=== PATIENT | male | born 1965 | race Caucasian/White ===

== ENCOUNTER 2017-02-13 00:25 | Emergency (ER) | payer MEDICAID ==
[2017-02-13 00:40] VITALS: BP 128/80
[2017-02-13] MEDS ORDERED: Hydrochlorothiazide 25 MG Tab PO ONE (01:10)
--- NOTE | 2017-02-13 02:12 | EDM.PDOC ---
ED HISTORY OF PRESENT ILLNESS - General Chief Complaint: Respiratory Problem Stated Complaint: POSSIBLE ALLERGIC REACTION Time Seen by Provider: 02/13/17 00:34 Source: Reports: Patient, Family () History Limitations: Reports: No limitations - History of Present Illness INITIAL COMMENTS - FREE TEXT/NARRATIVE: shortness of breath, when laying down: this is a 51 year old male present to ER with concerns of shortness of breath when laying. He reports had a change in his medication in October, noticed increased swelling in legs since the change. denies any chest pain, fever, chills, cough, nausea, vomiting, rash, head pain or other symptoms. worries he may have allergies. Timing/Duration: Reports: Gradual onset (since October 2016, stopped HCTZ) Location, General: Reports: generalized Improves with: Reports: Rest Worsens with: Reports: Movement Associated Symptoms: Reports: denies other symptoms - Related Data Allergies/ADRs: Allergies Allergy/AdvReac Type Severity Reaction Status Date / Time codeine Allergy Chest Verified 08/01/14 23:07 Tightness dextromethorphan Allergy Cough Verified 08/01/14 23:07 Home Meds: Home Meds Aspirin [Cain Chewable] 81 mg PO DAILY 08/01/14 [History] Fish Oil/DHA/EPA [Fish Oil 1,200 MG] 1 each PO DAILY 08/01/14 [History] Hydrochlorothiazide 25 mg PO DAILY 08/01/14 [History] Potassium Chloride 20 meq PO BEDTIME 08/01/14 [History] Potassium Chloride [Klor-Con] 40 meq PO DAILY 08/01/14 [History] Simvastatin [Zocor] 40 mg PO DAILY 08/01/14 [History] Furosemide [Furosemide] 20 mg PO DAILY 02/13/17 [History] Garlic 1 tab PO DAILY 02/13/17 [History] Metoprolol Succinate 50 mg PO DAILY 02/13/17 [History] Past Medical History HEENT History: Reports: Hard of hearing Cardiovascular History: Reports: High cholesterol, Hypertension Respiratory History: Reports: Bronchitis, recurrent, Pneumonia, recurrent Other Genitourinary History: not voiding as much Musculoskeletal History: Reports: Other (see below) Other Musculoskeletal History: rotator cuff L surgery. bilateral knee hyperextend, wears braces - Infectious Disease History Infectious Disease History: Reports: Chicken pox, Mumps Social & Family History - Tobacco Use Smoking Status *Q: Former Smoker Used Tobacco, but Quit: Yes Month Tobacco Last Used: 09/1986 Second Hand Smoke Exposure: No - Caffeine Use Caffeine Use: Reports: Coffee - Alcohol Use Days Per Week of Alcohol Use: 0 - Recreational Drug Use Recreational Drug Use: No ED ROS GENERAL - Review of Systems Review Of Systems: See Below Constitutional: Reports: weight gain HEENT: Reports: No symptoms Respiratory: Reports: Shortness of Breath (when laying down) Cardiovascular: Reports: Edema (chronic lower leg edema), Orthopnea Endocrine: Reports: no symptoms GI/Abdominal: Reports: No symptoms : Reports: no symptoms Musculoskeletal: Reports: no symptoms Skin: Reports: no symptoms Neurological: Reports: No Symptoms Psychiatric: Reports: No symptoms Hematologic/Lymphatic: Reports: no symptoms Immunologic: Reports: no symptoms ED EXAM, GENERAL - Physical Exam Exam: See Below Exam Limited By: No limitations General Appearance: alert, WD/WN, no apparent distress Eye Exam: bilateral eye: normal inspection Ears: normal external exam, normal canal, hearing grossly normal, normal TMs Ear Exam: bilateral ear: auricle normal, canal normal, TM normal Nose: normal inspection, normal mucosa, no blood Throat/Mouth: Normal inspection, Normal lips, Normal teeth, Normal gums, Normal oropharynx, Normal voice, No airway compromise Head: atraumatic, normocephalic Neck: normal inspection, supple, non-tender, full range of motion Respiratory/Chest: no respiratory distress, lungs clear, normal breath sounds, no accessory muscle use, chest non-tender Cardiovascular: regular rate, rhythm, other (bilateral lower leg edema) GI/Abdominal: normal bowel sounds, soft, non tender, distended (large obese) (Male) Exam: Deferred Rectal (Males) Exam: Deferred Back Exam: normal inspection Extremities: other (bilateral lower leg edema from ankles to knees.) Neurological: alert, oriented, CN II-XII intact, normal cognition, normal gait, no motor/sensory deficits Psychiatric: normal affect, normal mood Skin Exam: Warm, Dry, Intact, Normal color, No rash Lymphatic: no adenopathy Course - Vital Signs Last Recorded V/S: Last Vital Signs Temp 37.2 C 02/13/17 00:39 Pulse 81 02/13/17 00:39 Resp 20 02/13/17 00:39 BP 128/80 02/13/17 00:39 Pulse Ox - Orders/Labs/Meds Orders: Active Orders 24 hr Category Date Time Status Chest 2V [CR] Urgent Exams 02/13/17 01:09 Taken Labs: Laboratory Tests 02/13/17 02/13/17 02/13/17 Range/Units 01:09 01:09 01:10 WBC 8.4 (4.5-11.0) K/uL RBC 4.50 (4.30-5.90) M/uL Hgb 15.2 H (12.0-15.0) g/dL Hct 43.6 (40.0-54.0) % MCV 97 (80-98) fL MCH 34 H (27-31) pg MCHC 35 (32-36) % Plt Count 230 (150-400) K/uL Neut % (Auto) 61 (36-66) % Lymph % (Auto) 26 (24-44) % King % (Auto) 12 H (2-6) % Eos % (Auto) 2 (2-4) % Baso % (Auto) 1 (0-1) % Sodium 142 (140-148) mmol/L Potassium 4.3 (3.6-5.2) mmol/L Chloride 105 (100-108) mmol/L Carbon Dioxide 28 (21-32) mmol/L Anion Gap 9.5 (5.0-14.0) mmol/L BUN 20 H (7-18) mg/dL Creatinine 1.4 H (0.8-1.3) mg/dL Est Cr Clr Drug Dosing 64.45 mL/min Estimated GFR (MDRD) 53 L (>60) Glucose 124 H (74-106) mg/dL Calcium 8.2 L (8.5-10.1) mg/dL Total Bilirubin 0.6 (0.2-1.0) mg/dL AST 30 (15-37) U/L ALT 53 (12-78) U/L Alkaline Phosphatase 97 (46-116) U/L Vrd-W-Uhypouiohfw Pept 37 (5-125) pg/mL Total Protein 7.3 (6.4-8.2) g/dL Albumin 3.7 (3.4-5.0) g/dL Globulin 3.6 H (2.3-3.5) g/dL Albumin/Globulin Ratio 1.0 L (1.2-2.2) Meds: Medications Discontinued Medications Generic Name Dose Route Start Last Admin Trade Name Rose PRN Reason Stop Dose Admin Hydrochlorothiazide 25 mg 02/13/17 01:10 02/13/17 01:24 Hydrochlorothiazide PO 02/13/17 01:11 25 mg ONETIME ONE Administration - Re-Assessments/Exams Free Text/Narrative Re-Assessment/Exam: 02/13/17 02:21 reviewed labs and chest xray with patient given additional dose of HCTZ 25mg po; patient reports voided large amount, feeling better advise to reduce salty and processed foods follow up with Primary Care for recheck this week. Departure - Departure Time of Disposition: 02:22 Disposition: Home, Self-Care 01 Condition: good Clinical Impression: Edema extremities Instructions: Peripheral Edema Referrals: Sonia Crandall MD [Primary Care Provider] - Forms: ED Department Discharge Care Plan Goals: Edema -restart HCTZ 25 mg daily -continue Lasix 20mg daily -limit salty or processed foods -follow up with Primary Care Provider for recheck this week. return to ER if not improved or symptoms worsen. - Problem List & Annotations (1) Edema extremities SNOMED Code(s): 924031945 Code(s): R60.0 - LOCALIZED EDEMA Priority: High Current Visit: Yes - Problem List Review Problem List Initiated/Reviewed/Updated: Yes - My Orders Last 24 Hours: My Active Orders 02/13/17 01:09 Chest 2V [CR] Urgent - Assessment/Plan Last 24 Hours: My Active Orders 02/13/17 01:09 Chest 2V [CR] Urgent Plan: Edema -restart HCTZ 25 mg daily -continue Lasix 20mg daily -limit salty or processed foods -follow up with Primary Care Provider for recheck this week. return to ER if not improved or symptoms worsen.
--- NOTE | 2017-02-14 09:45 | CR ---
Chest 2V FINDINGS: Shallow lung joint are demonstrated. There is basilar atelectasis. The heart and vascular structures are normal in appearance. No infiltrates or effusions are demonstrated. The skeletal stru ctures are unremarkable. IMPRESSION: 1. No acute findings.
== END 2017-02-13 02:18 | disposition home or self-care (01) ==
LOC: JP.ED 00:25
DX: R60.0 Localized edema (principal); I10 Essential (primary) hypertension; E78.00 Pure hypercholesterolemia, unspecified; Z98.890 Other specified postprocedural states; Z87.891 Personal history of nicotine dependence; Z79.82 Long term (current) use of aspirin; Z79.899 Other long term (current) drug therapy; Z88.5 Allergy status to narcotic agent; Z88.8 Allergy status to other drugs, medicaments and biological substances
CPT/HCPCS: 36415; 71020; 80053; 83880; 85025; 99284; A9270; 99283